=== PATIENT | male | born 1960 | race Caucasian/White ===

== ENCOUNTER 2022-11-01 09:38 | Outpatient (OUT) | payer SELFPAY ==
--- NOTE | 2022-11-01 09:46 | XR_ITS ---
The [place] [id number] Patient Name: SAM MCGEE MRN: [id number] date: 1960 Sex: M Assigned Patient Location: RAD Current Patient Location: RAD Accession/Order Number: [id number] Exam Date: 11/01/2022 09:58 Report Date: 11/01/2022 10:49 At the request of: JENNIFER HUYNH Procedure: XR knee LT 3V PROCEDURE: XR knee LT 3V DATE: 11/01/2022 8:58 AM CDT COMPARISONS: None CLINICAL INDICATION: Primary hypertension I10 FINDINGS: There is no evidence of fractures or other acute osseous abnormalities. There is mild to moderate tricompartmental spurring. There is significant narrowing of the medial femoral tibial joint space compartment. There is no evidence of left knee joint effusion. XR/XR knee LT 3V IMPRESSION: Moderate left knee degenerative changes especially involving the medial compartment. Electronically authenticated by: TK MICHELLE Date: 11/01/2022 10:49
== END 2022-11-01 09:39 | disposition home or self-care (01) ==
LOC: RAD 09:42
PROVIDERS: PCP Internal Medicine; Visit Provider Internal Medicine
DX: I10 Essential (primary) hypertension (principal)
CPT/HCPCS: 73562

== ENCOUNTER 2023-02-28 12:56 | Outpatient (OUT) | payer OTHER, SELFPAY ==
--- NOTE | 2023-02-28 13:05 | XR_ITS ---
The [address] [address] Patient Name: SAM MCGEE MRN: [id number] date: 1960 Sex: M Assigned Patient Location: RAD Current Patient Location: [facility] Accession/Order Number: [id number] Exam Date: 02/28/2023 13:30 Report Date: 02/28/2023 14:01 At the request of: CARLO GUIDO Procedure: XR knee RT 4V PROCEDURE: XR knee RT 4V COMPARISON: None. HISTORY: Acute Pain Of Right Knee Pain M25.561 FINDINGS: BONES:No acute fracture or dislocation. Mild tricompartmental osteoarthropathy SOFT TISSUES:Negative. No visible soft tissue swelling. EFFUSION:None visible. OTHER: Negative. XR/XR knee RT 4V IMPRESSION: Mild osteoarthritis Electronically authenticated by: TOSHA ISSA Date: 02/28/2023 14:01
== END 2023-02-28 12:57 | disposition home or self-care (01) ==
LOC: RAD 12:57
PROVIDERS: PCP Internal Medicine; Visit Provider Nurse Practitioner Family
DX: M25.561 Pain in right knee (principal)
CPT/HCPCS: 73564